=== PATIENT | female | born 1955 | race African-American/Black ===

== ENCOUNTER 2019-05-23 15:03 | Emergency (ER) | payer MEDICAID, OTHER ==
[~2019-05-23] VITALS: Ht 160 cm; Wt 86.2 kg
[2019-05-23 15:20] VITALS: BP 154/94
[2019-05-23] MEDS ORDERED: IBUPROFEN 600 MG TAB PO ONE (16:00)
== END 2019-05-23 16:32 | disposition home or self-care (01) ==
LOC: ER 15:03
DX: M77.32 Calcaneal spur, left foot (principal); I10 Essential (primary) hypertension
CPT/HCPCS: 73630